=== PATIENT | male | born 1950 | race African-American/Black ===

== ENCOUNTER 2023-03-28 15:02 | Inpatient (IN) | payer OTHER ==
[2023-03-28] MEDS ORDERED: Acetaminophen 500 MG TAB ONE (17:02)
[2023-03-28 17:16] LABS: #Eosinphils 0.1 thou/uL (0.0-0.7); #Monocytes 0.3 thou/uL (0.11-0.59); #Neutrophils 1.6 thou/uL (1.40-6.50); %Eosinophils 4.5 % (0.0-10.0); %Lymphocytes 34.8 % (21.0-51.0); %Monocytes 9.9 % (0.0-10.0); %Neutrophils 49.5 % (42.0-75.0); Hematocrit 34.3 % (42.0-52.0); Hemoglobin 10.5 g/dL (14.0-18.0); Mean Corpuscular HGB CONC 30.6 g/dL (32.0-36.0); Mean Corpuscular Hemoglobin 28.8 pg (27.0-31.0); Mean Corpuscular Volume 94.2 fl (78.0-98.0); Mean Platelet Volume 10.5 fL (7.4-10.4); Platelet Count 132 10x3/uL (130-400); RBC Distribution Width 16.8 % (11.5-14.5); Red Blood Cell (RBC) Count 3.64 mill/uL (4.70-6.10); White Blood Cell (WBC) Count 3.1 10x3/uL (4.8-10.8)
[2023-03-28 17:39] LABS: ALT (SGPT) 14 U/L (8-55); AST (SGOT) 15 U/L (5-34); Albumin 3.8 g/dL (3.4-4.8); Alkaline Phosphatase 52 U/L (40-110); Anion Gap 13 mmol/L (10-20); BUN (Urea Nitrogen) 17 mg/dL (8.4-25.7); Bilirubin, Total 0.3 mg/dL (0.2-1.2); Calc. Creatinine Clearance 0 mL/min (70-130); Calcium 8.6 mg/dL (7.8-10.44); Carbon Dioxide 22 mmol/L (23-31); Chloride 110 mmol/L (98-107); Estimated GFR 42; Globulin 3.1 g/dL (2.4-3.5); Glucose 86 mg/dL (83-110); Protein, Total 6.9 g/dL (5.8-8.1); Sodium 141 mmol/L (136-145)
[2023-03-28] MEDS ORDERED: diphenhydrAMINE 50 MG/ML VIAL ONE (18:25)
[2023-03-28] MEDS ORDERED: Metoclopramide HCl 10 MG/2 ML VIAL ONE (18:25)
[2023-03-28] MEDS ORDERED: Ketorolac Tromethamine 30 MG/ML VIAL ONE (20:41)
[2023-03-28] MEDS ORDERED: hydrALAZINE 20 MG/ML VIAL ONE (21:11)
[2023-03-28] MEDS ORDERED: Albuterol 200 PUFF (6.7GM INHALER) INH PRN (22:21)
[2023-03-28] MEDS ORDERED: niCARdipine 25 MG in Sodium Chloride 0.9% 250 ML 250 ML IVPB SCH (22:30)
[2023-03-28] MEDS ORDERED: niCARdipine 25 MG/10 ML SDV ONE (22:42)
[2023-03-28 22:49] LABS: Troponin I 0.027 ng/mL (< 0.028)
[2023-03-28] MEDS ORDERED: Ondansetron ODT 4 MG TAB PO PRN (23:22)
[2023-03-28] MEDS ORDERED: Acetaminophen 325 MG TAB PO PRN (23:22)
[2023-03-28] MEDS ORDERED: hydrALAZINE 25 MG TAB PO SCH (23:45)
[2023-03-28] MEDS ORDERED: Amlodipine 5 MG TAB PO SCH (23:45)
[2023-03-28] MEDS ORDERED: Senokot S 8.6-50 MG TAB PO PRN (23:45)
[2023-03-28] MEDS ORDERED: Polyethylene Glycol 3350 17 GM Packet PO SCH (23:59)
[2023-03-29 00:08] VITALS: BMI 30.2
[2023-03-29] MEDS: niCARdipine 25 MG in Sodium Chloride 0.9% 250 ML 250 ML IVPB SCH ×4 (01:37→17:43)
[2023-03-29 03:26] LABS: #Eosinphils 0.2 thou/uL (0.0-0.7); #Monocytes 0.3 thou/uL (0.11-0.59); #Neutrophils 1.8 thou/uL (1.40-6.50); %Basophils 0.9 % (0.0-1.0); %Eosinophils 4.7 % (0.0-10.0); %Lymphocytes 31.7 % (21.0-51.0); %Monocytes 8.5 % (0.0-10.0); %Neutrophils 53.9 % (42.0-75.0); Hematocrit 34.8 % (42.0-52.0); Hemoglobin 10.9 g/dL (14.0-18.0); Mean Corpuscular HGB CONC 31.3 g/dL (32.0-36.0); Mean Corpuscular Hemoglobin 28.5 pg (27.0-31.0); Mean Platelet Volume 9.6 fL (7.4-10.4); Platelet Count 134 10x3/uL (130-400); RBC Distribution Width 16.9 % (11.5-14.5); Red Blood Cell (RBC) Count 3.83 mill/uL (4.70-6.10); White Blood Cell (WBC) Count 3.4 10x3/uL (4.8-10.8)
[2023-03-29 03:33] LABS: Mean Corpuscular Volume 90.9 fl (78.0-98.0)
[2023-03-29 03:50] LABS: Anion Gap 12 mmol/L (10-20); BUN (Urea Nitrogen) 15 mg/dL (8.4-25.7); Calc. Creatinine Clearance 61 mL/min (70-130); Calcium 8.7 mg/dL (7.8-10.44); Carbon Dioxide 21 mmol/L (23-31); Chloride 109 mmol/L (98-107); Estimated GFR 53; Glucose 133 mg/dL (83-110); Magnesium 1.7 mg/dL (1.6-2.6); Potassium 3.4 mmol/L (3.5-5.1); Sodium 139 mmol/L (136-145)
[2023-03-29] MEDS ORDERED: hydrALAZINE 25 MG TAB PO SCH (06:15)
[2023-03-29] MEDS: Mometasone 200 MCG/Formoterol 5 MCG 120 PUFF INHALER INH SCH ×2 (07:07→18:34)
[2023-03-29] MEDS: Heparin 5,000 UNITS/ML VIAL SC SCH ×3 (08:47→19:36)
[2023-03-29] MEDS: Allopurinol 100 MG TAB PO SCH (08:48)
[2023-03-29] MEDS: Atorvastatin Calcium 10 MG TAB PO SCH (08:48)
[2023-03-29] MEDS ORDERED: Famotidine 20 MG TAB PO SCH (09:00)
[2023-03-29] MEDS ORDERED: FLU VACC QS2023(65UP)/MF59C/PF 60 MCG/0.5 ML SYRINGE IM ONE (09:00)
[2023-03-29] MEDS: Acetaminophen 500 MG TAB PO PRN ×2 (09:41→19:35)
[2023-03-29] MEDS: Mag-Al 1200 mg/1200 mg/30 ML UDCUP PO PRN (12:02)
[2023-03-29] MEDS: Carvedilol 6.25 MG TAB PO SCH (15:09)
[2023-03-29] MEDS: cloNIDine 0.1 MG TAB PO SCH (19:36)
[2023-03-29] MEDS: Montelukast Sodium 10 mg Tablet PO SCH (19:36)
[2023-03-30] MEDS: niCARdipine 25 MG in Sodium Chloride 0.9% 250 ML 250 ML IVPB SCH ×3 (00:13→13:38)
[2023-03-30] MEDS: Mometasone 200 MCG/Formoterol 5 MCG 120 PUFF INHALER INH SCH ×2 (07:14→19:21)
[2023-03-30] MEDS: Carvedilol 6.25 MG TAB PO SCH (08:05)
[2023-03-30] MEDS: Atorvastatin Calcium 10 MG TAB PO SCH (08:47)
[2023-03-30] MEDS: Allopurinol 100 MG TAB PO SCH (08:47)
[2023-03-30] MEDS: cloNIDine 0.1 MG TAB PO SCH ×2 (08:47→22:18)
[2023-03-30] MEDS: Polyethylene Glycol 3350 17 GM Packet PO SCH (08:49)
[2023-03-30] MEDS: Heparin 5,000 UNITS/ML VIAL SC SCH ×3 (08:51→22:19)
[2023-03-30] MEDS: NIFEdipine XL 60 MG ER.TAB PO SCH (09:52)
[2023-03-30 10:55] LABS: Anion Gap 15 mmol/L (10-20); BUN (Urea Nitrogen) 16 mg/dL (8.4-25.7); Calc. Creatinine Clearance 58 mL/min (70-130); Calcium 9.3 mg/dL (7.8-10.44); Carbon Dioxide 21 mmol/L (23-31); Chloride 104 mmol/L (98-107); Estimated GFR 51; Glucose 133 mg/dL (83-110); Potassium 3.8 mmol/L (3.5-5.1); Sodium 136 mmol/L (136-145)
[2023-03-30] MEDS: Acetaminophen/Codeine 30-300mg Tablet PO PRN (12:28)
[2023-03-30] MEDS ORDERED: Carvedilol 6.25 MG TAB PO SCH (12:45)
[2023-03-30] MEDS ORDERED: Aspirin/APAP/Caffeine Tab (Excedrin Migraine) PO PRN (15:22)
[2023-03-30] MEDS: Carvedilol 25 MG TAB PO SCH (17:20)
[2023-03-30] MEDS: Montelukast Sodium 10 mg Tablet PO SCH (22:20)
[2023-03-31 05:28] LABS: Anion Gap 15 mmol/L (10-20); BUN (Urea Nitrogen) 25 mg/dL (8.4-25.7); Calc. Creatinine Clearance 43 mL/min (70-130); Calcium 9.2 mg/dL (7.8-10.44); Carbon Dioxide 21 mmol/L (23-31); Chloride 105 mmol/L (98-107); Estimated GFR 35; Glucose 112 mg/dL (83-110); Sodium 137 mmol/L (136-145)
[2023-03-31] MEDS: Acetaminophen 500 MG TAB PO PRN (07:21)
[2023-03-31] MEDS: Mometasone 200 MCG/Formoterol 5 MCG 120 PUFF INHALER INH SCH ×2 (07:43→18:45)
[2023-03-31] MEDS: Atorvastatin Calcium 10 MG TAB PO SCH (09:39)
[2023-03-31] MEDS: cloNIDine 0.1 MG TAB PO SCH (09:39)
[2023-03-31] MEDS: Carvedilol 25 MG TAB PO SCH ×2 (09:39→17:53)
[2023-03-31] MEDS: NIFEdipine XL 60 MG ER.TAB PO SCH (09:39)
[2023-03-31] MEDS: Allopurinol 100 MG TAB PO SCH (09:39)
[2023-03-31] MEDS: Polyethylene Glycol 3350 17 GM Packet PO SCH (09:40)
[2023-03-31] MEDS: Heparin 5,000 UNITS/ML VIAL SC SCH (09:40)
[2023-03-31] MEDS ORDERED: cloNIDine 0.2 MG TAB PO SCH (15:00)
[2023-03-31] MEDS: Acetaminophen/Codeine 30-300mg Tablet PO PRN (17:54)
[2023-03-31] MEDS ORDERED: cloNIDine 0.1 MG TAB PO PRN (18:29)
[2023-03-31] MEDS: Montelukast Sodium 10 mg Tablet PO SCH (20:09)
[2023-03-31] MEDS: cloNIDine 0.2 MG TAB PO SCH (20:09)
[2023-04-01] MEDS: Mometasone 200 MCG/Formoterol 5 MCG 120 PUFF INHALER INH SCH (07:28)
[2023-04-01] MEDS: Polyethylene Glycol 3350 17 GM Packet PO SCH (08:56)
[2023-04-01] MEDS: cloNIDine 0.2 MG TAB PO SCH (08:56)
[2023-04-01] MEDS: Carvedilol 25 MG TAB PO SCH (08:56)
[2023-04-01] MEDS: Allopurinol 100 MG TAB PO SCH (08:56)
[2023-04-01] MEDS: NIFEdipine XL 60 MG ER.TAB PO SCH (08:56)
[2023-04-01] MEDS: Atorvastatin Calcium 10 MG TAB PO SCH (08:56)
[2023-04-01] MEDS: Acetaminophen/Codeine 30-300mg Tablet PO PRN (08:59)
[2023-04-01] MEDS: Mag-Al 1200 mg/1200 mg/30 ML UDCUP PO PRN (09:00)
[2023-04-01 12:06] VITALS: BP 108/67; TEMP 97.9
== END 2023-04-01 16:58 | disposition home or self-care (01) | DRG 305 ==
LOC: ERS 15:02 → CCU 22:17 → 2NO 03-30 17:52 → T4-A 03-31 15:26
PROVIDERS: ADMIT Student in an Organized Health Care Education/Training Program; ATTEND Internal Medicine Critical Care Medicine
DX: I16.1 Hypertensive emergency (principal); K21.9 Gastro-esophageal reflux disease without esophagitis; N40.0 Benign prostatic hyperplasia without lower urinary tract symptoms; E78.00 Pure hypercholesterolemia, unspecified; M10.9 Gout, unspecified; M19.90 Unspecified osteoarthritis, unspecified site; G43.909 Migraine, unspecified, not intractable, without status migrainosus; J45.909 Unspecified asthma, uncomplicated; N18.31 Chronic kidney disease, stage 3a; E11.22 Type 2 diabetes mellitus with diabetic chronic kidney disease; K59.09 Other constipation; I12.9 Hypertensive chronic kidney disease with stage 1 through stage 4 chronic kidney disease, or unspecified chronic kidney disease; Z98.890 Other specified postprocedural states; Z79.51 Long term (current) use of inhaled steroids; Z79.899 Other long term (current) drug therapy
CPT/HCPCS: 36415; 36416; 70450; 80048; 80053; 83735; 84443; 84484; 85025; 90471; 90694; 93005; G0008; J0360; J1200; J1644; J1885; J2765; J7050

== ENCOUNTER 2023-04-07 09:51 | Inpatient (IN) | payer OTHER ==
[2023-04-07 10:50] LABS: #Eosinphils 0.2 thou/uL (0.0-0.7); #Monocytes 0.3 thou/uL (0.11-0.59); #Neutrophils 1.7 thou/uL (1.40-6.50); %Basophils 0.9 % (0.0-1.0); %Eosinophils 5.1 % (0.0-10.0); %Lymphocytes 32.9 % (21.0-51.0); %Monocytes 8.2 % (0.0-10.0); %Neutrophils 52.6 % (42.0-75.0); Hematocrit 32.2 % (42.0-52.0); Mean Corpuscular HGB CONC 31.1 g/dL (32.0-36.0); Mean Corpuscular Hemoglobin 28.8 pg (27.0-31.0); Mean Corpuscular Volume 92.8 fl (78.0-98.0); Mean Platelet Volume 9.8 fL (7.4-10.4); Platelet Count 154 10x3/uL (130-400); RBC Distribution Width 16.3 % (11.5-14.5); Red Blood Cell (RBC) Count 3.47 mill/uL (4.70-6.10); White Blood Cell (WBC) Count 3.2 10x3/uL (4.8-10.8)
[2023-04-07 11:15] LABS: Troponin I Less than 0.010 ng/mL (< 0.028)
[2023-04-07 11:20] LABS: ALT (SGPT) 27 U/L (8-55); AST (SGOT) 16 U/L (5-34); Albumin 3.9 g/dL (3.4-4.8); Alkaline Phosphatase 59 U/L (40-110); Anion Gap 14 mmol/L (10-20); BUN (Urea Nitrogen) 53 mg/dL (8.4-25.7); Bilirubin, Total 0.4 mg/dL (0.2-1.2); Calc. Creatinine Clearance 0 mL/min (70-130); Carbon Dioxide 20 mmol/L (23-31); Chloride 107 mmol/L (98-107); Estimated GFR 15; Globulin 3.2 g/dL (2.4-3.5); Glucose 112 mg/dL (83-110); Potassium 4.4 mmol/L (3.5-5.1); Protein, Total 7.1 g/dL (5.8-8.1); Sodium 137 mmol/L (136-145)
[2023-04-07 13:46] LABS: Bilirubin Negative (Negative); Blood, Urine Negative (Negative); CAUTI Indications for Culture Alt mental st,lethar; Clarity Turbid (Clear); Glucose, Urine (Dipstick) Normal (Negative); Ketone, Urine Negative (Negative); Leukocyte Negative Leu/uL (Negative); Nitrite Negative (Negative); Protein, Urine (Dipstick) 10 mg/dL (Neg-Trace); Specific Gravity, Urine 1.018 (1.002-1.036); Urobilinogen Normal mg/dL (Less than 2); pH, Urine 5.5 (5.0-9.0)
[2023-04-07 13:47] LABS: Bacteria/HPF 1+ HPF (None Seen)
[2023-04-07 13:50] LABS: Urine Culture Reflex Yes Yes
[2023-04-07 13:52] LABS: Troponin I Less than 0.010 ng/mL (< 0.028)
[2023-04-07] MEDS ORDERED: Acetaminophen 650 MG Suppository PR PRN (14:09)
[2023-04-07] MEDS ORDERED: HumaLOG 300 UNITS/3 ML VIAL SC PRN ×2 (14:09)
[2023-04-07] MEDS ORDERED: Dextrose 50% Abboject 50 ML SYRINGE SLOW IVP PRN (14:09)
[2023-04-07] MEDS ORDERED: Ondansetron PF 4 MG/2 ML Vial IVP PRN (14:09)
[2023-04-07] MEDS ORDERED: Glucagon 1 MG/ML KIT IM PRN (14:09)
[2023-04-07] MEDS ORDERED: Ondansetron ODT 4 MG TAB PO PRN (14:09)
[2023-04-07] MEDS ORDERED: Dextrose 5% in Water 1,000 ML IV PRN (14:09)
[2023-04-07] MEDS ORDERED: Albuterol 200 PUFF (6.7GM INHALER) INH PRN (14:13)
[2023-04-07 14:40] VITALS: BMI 31.6
[2023-04-07] MEDS: cefTRIAXone\\ROCEPHIN 1 GM in Sodium Chloride 0.9% 100 ML IVPB SCH (16:03)
[2023-04-07] MEDS ORDERED: Communication Order-Pharmacy FS SCH (16:59)
[2023-04-07 17:14] LABS: Hematocrit 31.9 % (42.0-52.0); Hemoglobin 9.8 g/dL (14.0-18.0); Platelet Count 128 10x3/uL (130-400)
[2023-04-07 17:40] LABS: Troponin I 0.015 ng/mL (< 0.028)
[2023-04-07] MEDS: Mometasone 200 MCG HFA INHALER (RT USE) INH SCH (19:28)
[2023-04-08 05:50] LABS: #Eosinphils 0.2 thou/uL (0.0-0.7); #Monocytes 0.3 thou/uL (0.11-0.59); #Neutrophils 2.1 thou/uL (1.40-6.50); %Basophils 0.8 % (0.0-1.0); %Eosinophils 4.4 % (0.0-10.0); %Lymphocytes 28.5 % (21.0-51.0); %Monocytes 9.4 % (0.0-10.0); %Neutrophils 56.9 % (42.0-75.0); Hemoglobin 9.5 g/dL (14.0-18.0); Mean Corpuscular HGB CONC 30.6 g/dL (32.0-36.0); Mean Corpuscular Hemoglobin 28.4 pg (27.0-31.0); Mean Corpuscular Volume 92.8 fl (78.0-98.0); Mean Platelet Volume 10.3 fL (7.4-10.4); Platelet Count 153 10x3/uL (130-400); RBC Distribution Width 16.6 % (11.5-14.5); Red Blood Cell (RBC) Count 3.34 mill/uL (4.70-6.10); White Blood Cell (WBC) Count 3.6 10x3/uL (4.8-10.8)
[2023-04-08 06:31] LABS: Anion Gap 11 mmol/L (10-20); BUN (Urea Nitrogen) 45 mg/dL (8.4-25.7); Calc. Creatinine Clearance 35 mL/min (70-130); Calcium 8.6 mg/dL (7.8-10.44); Carbon Dioxide 17 mmol/L (23-31); Chloride 110 mmol/L (98-107); Estimated GFR 26; Glucose 106 mg/dL (83-110); Magnesium 2.1 mg/dL (1.6-2.6); Potassium 4.3 mmol/L (3.5-5.1); Sodium 134 mmol/L (136-145)
[2023-04-08] MEDS: Venlafaxine HCl XR 150 MG CAP PO SCH (08:30)
[2023-04-08] MEDS: Polyethylene Glycol 3350 17 GM Packet PO SCH (08:30)
[2023-04-08] MEDS: Senokot S 8.6-50 MG TAB PO SCH (08:30)
[2023-04-08] MEDS: Folic Acid 1 MG TAB PO SCH (08:30)
[2023-04-08] MEDS: Ferrous Sulfate 325 MG TAB PO SCH (08:30)
[2023-04-08] MEDS: Mometasone 200 MCG HFA INHALER (RT USE) INH SCH ×2 (09:24→20:09)
[2023-04-08] MEDS ORDERED: Sodium Bicarbonate Tab 325 MG TAB PO SCH (10:45)
[2023-04-08] MEDS ORDERED: Amiodarone 450 MG in Dextrose 5% in Water 250 ML IVPB SCH (11:15)
[2023-04-08] MEDS ORDERED: Amiodarone 150 MG in Dextrose 5% in Water 100 ML IVPB SCH (11:15)
[2023-04-08] MEDS: Lactated Ringer's 1,000 ML IV SCH (11:50)
[2023-04-08] MEDS: cefTRIAXone\\ROCEPHIN 1 GM in Sodium Chloride 0.9% 100 ML IVPB SCH (13:31)
[2023-04-08] MEDS ORDERED: Dronedarone HCl 400 MG TAB PO SCH ×2 (13:45→14:45)
[2023-04-08] MEDS: Apixaban 5 MG TAB PO SCH (21:11)
[2023-04-08] MEDS: Sodium Bicarbonate Tab 325 MG TAB PO SCH (21:11)
[2023-04-08] MEDS: Tamsulosin HCl 0.4 MG CAP PO SCH (21:11)
[2023-04-08] MEDS: Montelukast Sodium 10 mg Tablet PO SCH (21:11)
[2023-04-09] MEDS: Acetaminophen 325 MG TAB PO PRN ×2 (00:11→06:53)
[2023-04-09 05:29] LABS: #Eosinphils 0.2 thou/uL (0.0-0.7); #Monocytes 0.3 thou/uL (0.11-0.59); #Neutrophils 1.5 thou/uL (1.40-6.50); %Basophils 0.3 % (0.0-1.0); %Eosinophils 5.2 % (0.0-10.0); %Lymphocytes 33.2 % (21.0-51.0); %Monocytes 9.4 % (0.0-10.0); %Neutrophils 51.9 % (42.0-75.0); Hematocrit 30.9 % (42.0-52.0); Hemoglobin 9.7 g/dL (14.0-18.0); Mean Corpuscular HGB CONC 31.4 g/dL (32.0-36.0); Mean Corpuscular Hemoglobin 28.5 pg (27.0-31.0); Mean Corpuscular Volume 90.9 fl (78.0-98.0); Platelet Count 135 10x3/uL (130-400); RBC Distribution Width 16.5 % (11.5-14.5); White Blood Cell (WBC) Count 2.9 10x3/uL (4.8-10.8)
[2023-04-09] MEDS: Lactated Ringer's 1,000 ML IV SCH (05:52)
[2023-04-09 06:02] LABS: Anion Gap 13 mmol/L (10-20); BUN (Urea Nitrogen) 30 mg/dL (8.4-25.7); Calc. Creatinine Clearance 50 mL/min (70-130); Calcium 8.7 mg/dL (7.8-10.44); Carbon Dioxide 20 mmol/L (23-31); Chloride 108 mmol/L (98-107); Estimated GFR 39; Glucose 85 mg/dL (83-110); Potassium 4.1 mmol/L (3.5-5.1); Sodium 137 mmol/L (136-145)
[2023-04-09] MEDS: Atorvastatin Calcium 10 MG TAB PO SCH (08:56)
[2023-04-09] MEDS: Polyethylene Glycol 3350 17 GM Packet PO SCH (08:56)
[2023-04-09] MEDS: Senokot S 8.6-50 MG TAB PO SCH (08:56)
[2023-04-09] MEDS: Sodium Bicarbonate Tab 325 MG TAB PO SCH ×2 (08:56→20:28)
[2023-04-09] MEDS: Allopurinol 100 MG TAB PO SCH (08:56)
[2023-04-09] MEDS: Dronedarone HCl 400 MG TAB PO SCH ×2 (08:56→16:55)
[2023-04-09] MEDS: Folic Acid 1 MG TAB PO SCH (08:56)
[2023-04-09] MEDS: Apixaban 5 MG TAB PO SCH ×2 (08:57→20:29)
[2023-04-09] MEDS: Ferrous Sulfate 325 MG TAB PO SCH (08:57)
[2023-04-09] MEDS: Venlafaxine HCl XR 150 MG CAP PO SCH (08:58)
[2023-04-09] MEDS: Mometasone 200 MCG HFA INHALER (RT USE) INH SCH ×2 (09:05→18:54)
[2023-04-09] MEDS ORDERED: NIFEdipine XL 60 MG ER.TAB PO SCH (09:45)
[2023-04-09] MEDS ORDERED: Fioricet 325/50/40 mg Tablet PO SCH ×2 (09:45→10:15)
[2023-04-09] MEDS: NIFEdipine XL 60 MG ER.TAB PO SCH (11:02)
[2023-04-09] MEDS: Fioricet 325/50/40 mg Tablet PO PRN (18:30)
[2023-04-09] MEDS: Montelukast Sodium 10 mg Tablet PO SCH (20:28)
[2023-04-09] MEDS: Tamsulosin HCl 0.4 MG CAP PO SCH (20:28)
[2023-04-10] MEDS: Fioricet 325/50/40 mg Tablet PO PRN (03:19)
[2023-04-10 04:29] LABS: Hematocrit 31.4 % (42.0-52.0); Hemoglobin 9.9 g/dL (14.0-18.0); Platelet Count 152 10x3/uL (130-400)
[2023-04-10 04:30] LABS: #Eosinphils 0.2 thou/uL (0.0-0.7); #Monocytes 0.4 thou/uL (0.11-0.59); #Neutrophils 1.7 thou/uL (1.40-6.50); %Basophils 0.6 % (0.0-1.0); %Eosinophils 4.8 % (0.0-10.0); %Lymphocytes 31.4 % (21.0-51.0); %Monocytes 11.1 % (0.0-10.0); %Neutrophils 51.8 % (42.0-75.0); Hematocrit 31.2 % (42.0-52.0); Hemoglobin 9.9 g/dL (14.0-18.0); Mean Corpuscular HGB CONC 31.7 g/dL (32.0-36.0); Mean Corpuscular Hemoglobin 29.1 pg (27.0-31.0); Mean Corpuscular Volume 91.8 fl (78.0-98.0); Mean Platelet Volume 9.9 fL (7.4-10.4); Platelet Count 161 10x3/uL (130-400); RBC Distribution Width 16.3 % (11.5-14.5); White Blood Cell (WBC) Count 3.3 10x3/uL (4.8-10.8)
[2023-04-10 04:57] LABS: Anion Gap 14 mmol/L (10-20); BUN (Urea Nitrogen) 17 mg/dL (8.4-25.7); Calc. Creatinine Clearance 62 mL/min (70-130); Calcium 9.4 mg/dL (7.8-10.44); Carbon Dioxide 22 mmol/L (23-31); Chloride 107 mmol/L (98-107); Estimated GFR 51; Glucose 97 mg/dL (83-110); Potassium 4.3 mmol/L (3.5-5.1); Sodium 139 mmol/L (136-145)
[2023-04-10] MEDS: Mometasone 200 MCG HFA INHALER (RT USE) INH SCH (07:18)
[2023-04-10] MEDS: Sodium Bicarbonate Tab 325 MG TAB PO SCH (09:23)
[2023-04-10] MEDS: Dronedarone HCl 400 MG TAB PO SCH (09:23)
[2023-04-10] MEDS: Apixaban 5 MG TAB PO SCH (09:24)
[2023-04-10] MEDS: Senokot S 8.6-50 MG TAB PO SCH (09:24)
[2023-04-10] MEDS: Folic Acid 1 MG TAB PO SCH (09:24)
[2023-04-10] MEDS: Allopurinol 100 MG TAB PO SCH (09:24)
[2023-04-10] MEDS: NIFEdipine XL 60 MG ER.TAB PO SCH (09:25)
[2023-04-10] MEDS: Venlafaxine HCl XR 150 MG CAP PO SCH (09:25)
[2023-04-10] MEDS: Ferrous Sulfate 325 MG TAB PO SCH (09:25)
[2023-04-10] MEDS: Polyethylene Glycol 3350 17 GM Packet PO SCH (09:26)
[2023-04-10] MEDS: Atorvastatin Calcium 10 MG TAB PO SCH (10:07)
[2023-04-10 11:47] VITALS: TEMP 98
[2023-04-10 12:00] VITALS: BP 163/87
== END 2023-04-10 15:05 | disposition home or self-care (01) | DRG 309 ==
LOC: ERS 09:51 → 2NO 14:10
PROVIDERS: ADMIT Hospitalist; ATTEND Family Medicine
DX: I48.91 Unspecified atrial fibrillation (principal); N17.9 Acute kidney failure, unspecified; N18.4 Chronic kidney disease, stage 4 (severe); N39.0 Urinary tract infection, site not specified; E78.5 Hyperlipidemia, unspecified; E11.22 Type 2 diabetes mellitus with diabetic chronic kidney disease; J45.909 Unspecified asthma, uncomplicated; M10.9 Gout, unspecified; I12.9 Hypertensive chronic kidney disease with stage 1 through stage 4 chronic kidney disease, or unspecified chronic kidney disease; D50.9 Iron deficiency anemia, unspecified; K21.9 Gastro-esophageal reflux disease without esophagitis; N40.0 Benign prostatic hyperplasia without lower urinary tract symptoms; E78.00 Pure hypercholesterolemia, unspecified; G43.909 Migraine, unspecified, not intractable, without status migrainosus; F32.A Depression, unspecified; Z79.51 Long term (current) use of inhaled steroids; Z79.899 Other long term (current) drug therapy; Z98.890 Other specified postprocedural states
CPT/HCPCS: 36415; 36416; 70450; 71045; 76770; 80048; 80053; 81001; 83735; 83880; 84484; 85014; 85018; 85025; 85049; 87086; 93005; 93010; 93306; 96360; 96372; J0696; J1650; J3490; J7120